=== PATIENT | male | born 1955 | race Two or more races ===

== ENCOUNTER 2024-08-17 07:59 | Outpatient (AMB) | payer MEDICARE, MEDICAID, SELFPAY ==
[2024-08-17 08:12] VITALS: BP 113/76; PULSE 61; RESP 18; TEMP 36.6; O2SAT 94; BMI 43.9
--- NOTE | 2024-08-17 08:12 | ORTHONT_ITS ---
Vital signs 08/17/24 08:12 Height 1.65 m Height Method Stated Weight 119.89 kg Weight Measurement Method Standing Scale BMI 43.9 BP 113/76 Blood Pressure Source Automatic Cuff Blood Pressure Location Left Upper Arm Position Sitting Respiration 18 Pulse 61 Pulse Source Monitor Temp 97.8 F Temp Source Temporal Artery Scan Pulse Oximetry (%) 94 L Oxygen Delivery Method Room Air Med/Allergies Allergies & Medications Allergies oyster extract Allergy (Verified 08/17/24 08:13) Medication Reconciliation atorvastatin 10 mg tablet 10 mg PO QDAY 08/17/24 [History Confirmed 08/17/24] cholecalciferol (vitamin D3) 1,250 mcg (50,000 unit) capsule 1,250 mcg PO QMONTH 08/17/24 [History Confirmed 08/17/24] levothyroxine 50 mcg capsule 50 mcg PO QDAY 08/17/24 [History Confirmed 08/17/24] meloxicam 15 mg tablet 15 mg PO QDAY 08/17/24 [History Confirmed 08/17/24] metformin 500 mg tablet 500 mg PO QDAY 08/17/24 [History Confirmed 08/17/24] semaglutide 1 mg/dose (4 mg/3 mL) subcutaneous pen injector (Ozempic) 1 mg subcut QWEEK 08/17/24 [History Confirmed 08/17/24] Exam Exam Patient is in no acute distress and is cooperative with the examination today. Breathing is nonlabored. Patient has a normal mood and affect. Bilateral extremities were evaluated and demonstrates sensation intact to light touch. Palpable pedal pulses are present. No significant edema is present. Bilateral hips were examined. The patient has no pain with log roll of the hips. Internal rotation to 30 degrees and external rotation to 30 degrees is painless. Negative FADIR. Right knee was examined today. The right knee is in reasonable alignment. Range of motion from 0-120 degrees. Knee is stable to varus and valgus as well as AP translation with <5mm. Patient has a negative McMurrays. There is no pain with patellofemoral compression and no crepitus noted. The knee is nontender to palpation. Left knee was examined today. The left knee is in varus alignment. Range of motion from 0-115 degrees. Knee is stable to varus and valgus as well as AP translation with <5mm. Patient has a negative McMurrays. There is no pain with patellofemoral compression and no crepitus noted. The knee is tender to palpation medially. X-rays from [facility] were reviewed. This demonstrates varus alignment and complete joint space obliteration of the medial joint space Assessment and Plan Problem List (1) Arthritis of left knee: Status: Acute Plan: Patient is a 68-year-old male with left knee pain and left knee arthritis. He has failed conservative treatment, 2 injections, anti-inflammatories. He has severe arthritis on x-rays but his BMI is currently 44. He will make an attempt to lose the weight. His diabetes is fortunately under control. We did just héctor about total knee replacement. We also discussed weight loss in great detail. We discussed that if he can lose some weight he will be a better candidate for a total knee replacement. We discussed the risk and benefits of total knee replacement in great detail today Advanced Care Planning Discussion Advance care planning discussed with:: patient Office Procedures GNS Level of Care Nursing/Assessment Patient Status: Initial/New Patient Nursing Assessment/Reassesment: Medication Reconciliation, Update PMH in EMR and Vital Signs Coordination of Care: Complex Care and Chronic Disease 1-5, Education Complex Pt/Fam, Consent,records obtained, informed consent, 1 Ins Authorization, Lab and Imaging orders, Results/Orders obtained and Staff clarify orders New Patient Charge New Patient Point Assignment: 1124 New Patient Point Charge: MANAGER TECH[employer]ICAL SALES Level 4 ([id number]) MA Intake Visit Data Collection New Patient or Established: New Patient (never been to [facility]) Reason for Visit:: BILATERAL OA KNEE Seen by Clinical Staff ONLY (RN/MA): No PCP or OBGYN visit in last 3 months: Yes Hx Now: No Do You Feel Safe at Home: Yes Authorities Contacted: N/A Questionairres Past Medical History Past Medical History Have you ever been diagnosed with any of the following: Respiratory Problems Smoking: No Smoking Exposure: No Endocrine Problems Diabetes Mellitus Type 2: Yes Hyperthyroidism: Yes Subjective Visit Visit for: new patient and knee (BILATERAL ) Immunization / Flu Flu Vaccine in the Last 12 Months: Yes Flu Vaccine Exclusion Criteria: No Exclusion Criteria History of Present Illness Chief complaint: Left knee pain Date of injury / onset of symptoms: 3 YEARS Jimbo is a pleasant 68-year-old male with left knee pain. This knee pain has been ongoing for several years. He does have diabetes and is reportedly well- controlled with a hemoglobin A1c of 6.7. The left knee pain is significantly worse than the right. He has tried 2 injections, formal physical therapy for 6 weeks, and anti-inflammatories. He is currently on meloxicam. He has tried to lose weight and was previously on Ozempic. Personal History Occupation: RETIRED Pain Pain level (0-10): 7 Pain duration: WITH MOVEMENT Pain location: inside (medial) and anterior Pain quality: dull Pain timing: increases with activity Ambulatory data Ambulatory device: other (specify) (KNEE BRACE) Treatments Number of previous injections: 2 Improvement with previous injections: No Number of Physical Therapy sessions: 12 Improvement with PT: No Improvement with NSAIDS: no Review of Systems Review of Systems: All systems negative unless otherwise noted in HPI.
== END 2024-08-17 08:26 | disposition home or self-care (01) ==
PROVIDERS: PCP Family Medicine; Referring Provider Family Medicine; Supervising Provider Orthopaedic Surgery Adult Reconstructive Orthopaedic Surgery; Visit Provider Orthopaedic Surgery Adult Reconstructive Orthopaedic Surgery
DX: M17.12 Unilateral primary osteoarthritis, left knee (principal); M25.562 Pain in left knee; E11.9 Type 2 diabetes mellitus without complications
CPT/HCPCS: 99204; G0463

== ENCOUNTER 2024-11-22 10:14 | Outpatient (AMB) | payer MEDICARE, MEDICAID, SELFPAY ==
--- NOTE | 2024-11-22 10:25 | PD.ORTHCLVIS ---
Vital signs 11/22/24 10:31 Height 1.65 m Height Method Stated Weight 119.04 kg Weight Measurement Method Standing Scale BMI 43.7 BP 123/65 Blood Pressure Source Automatic Cuff Blood Pressure Location Left Upper Arm Position Sitting Respiration 18 Pulse 79 Pulse Source Monitor Temp 97.4 F Temp Source Temporal Artery Scan Pulse Oximetry (%) 94 L Oxygen Delivery Method Room Air Med/Allergies Allergies & Medications Allergies oyster extract Allergy (Verified 11/22/24 10:27) Medication Reconciliation atorvastatin 10 mg tablet 10 mg PO QDAY 08/17/24 [History Confirmed 11/22/24] cholecalciferol (vitamin D3) 1,250 mcg (50,000 unit) capsule 1,250 mcg PO QMONTH 08/17/24 [History Confirmed 11/22/24] levothyroxine 50 mcg capsule 50 mcg PO QDAY 08/17/24 [History Confirmed 11/22/24] meloxicam 15 mg tablet 15 mg PO QDAY 08/17/24 [History Confirmed 11/22/24] metformin 500 mg tablet 500 mg PO QDAY 08/17/24 [History Confirmed 11/22/24] semaglutide 1 mg/dose (4 mg/3 mL) subcutaneous pen injector (Ozempic) 1 mg subcut QWEEK 08/17/24 [History Confirmed 11/22/24] Exam Exam Patient is in no acute distress and is cooperative with the examination today. Breathing is nonlabored. Patient has a normal mood and affect. Bilateral extremities were evaluated and demonstrates sensation intact to light touch. Palpable pedal pulses are present. No significant edema is present. Bilateral hips were examined. The patient has no pain with log roll of the hips. Internal rotation to 30 degrees and external rotation to 30 degrees is painless. Negative FADIR. Right knee was examined today. The right knee is in reasonable alignment. Range of motion from 0-120 degrees. Knee is stable to varus and valgus as well as AP translation with <5mm. Patient has a negative McMurrays. There is no pain with patellofemoral compression and no crepitus noted. The knee is nontender to palpation. Left knee was examined today. The left knee is in varus alignment. Range of motion from 0-115 degrees. Knee is stable to varus and valgus as well as AP translation with <5mm. Patient has a negative McMurrays. There is no pain with patellofemoral compression and no crepitus noted. The knee is tender to palpation medially. X-rays from [facility] were reviewed. This demonstrates varus alignment and complete joint space obliteration of the medial joint space Assessment and Plan Problem List (1) Arthritis of left knee: Status: Acute Plan: Patient is a 68-year-old male with left knee pain and left knee arthritis. He has failed conservative treatment, 2 injections, anti-inflammatories. He has severe arthritis on x-rays but his BMI is currently 44. He will make an attempt to lose the weight. His diabetes is fortunately under control. We did just héctor about total knee replacement. We also discussed weight loss in great detail. We discussed that if he can lose some weight he will be a better candidate for a total knee replacement. We discussed the risk and benefits of total knee replacement in great detail today. He still is approximately the same weight as last time Advanced Care Planning Discussion Advance care planning discussed with:: patient and child Office Procedures GNS Level of Care Nursing/Assessment Patient Status: Established Patient Nursing Assessment/Reassesment: Medication Reconciliation, Update PMH in EMR and Vital Signs Coordination of Care: Complex Care and Chronic Disease 1-5, Education Complex Pt/Fam, Consent,records obtained, informed consent, Results/Orders obtained and Staff clarify orders Established Patient Charge Established Patient Point Assignment: 95 Established Patient Point Charge: EP Level 3 (80-115) MA Intake Visit Data Collection Reason for Visit:: BILATERAL OA KNEE Seen by Clinical Staff ONLY (RN/MA): No PCP or OBGYN visit in last 3 months: Yes Hx Now: No Do You Feel Safe at Home: Yes Authorities Contacted: N/A Questionairres Past Medical History Past Medical History Have you ever been diagnosed with any of the following: Respiratory Problems Smoking: No Smoking Exposure: No Endocrine Problems Diabetes Mellitus Type 2: Yes Hyperthyroidism: Yes Subjective Immunization / Flu Flu Vaccine in the Last 12 Months: Yes Flu Vaccine Exclusion Criteria: No Exclusion Criteria History of Present Illness Chief complaint: Left knee pain Date of injury / onset of symptoms: 3 YEARS Jimbo is a pleasant 68-year-old male with left knee pain. This knee pain has been ongoing for several years. He does have diabetes and is reportedly well-controlled with a hemoglobin A1c of 6.7. The left knee pain is significantly worse than the right. He has tried 2 injections, formal physical therapy for 6 weeks, and anti-inflammatories. He is currently on meloxicam. He has tried to lose weight and was previously on Ozempic. Personal History Occupation: RETIRED Pain Pain level (0-10): 7 Pain duration: WITH MOVEMENT Pain location: inside (medial) and anterior Pain quality: dull Pain timing: increases with activity Ambulatory data Ambulatory device: other (specify) (KNEE BRACE) Treatments Number of previous injections: 2 Improvement with previous injections: No Number of Physical Therapy sessions: 12 Improvement with PT: No Improvement with NSAIDS: no Review of Systems Review of Systems: All systems negative unless otherwise noted in HPI.
[2024-11-22 10:31] VITALS: BP 123/65; PULSE 79; RESP 18; TEMP 36.3; O2SAT 94; BMI 43.7
--- NOTE | 2024-11-22 10:56 | XR_ITS ---
Examination: Bilateral knees 2 views Right lateral knee left lateral knee 2 views Right axial knee left axial knee 2 views TECHNIQUE: Bilateral AP knees standing single view, bilateral PA knees standing single view flexion Standing right lateral knee left lateral knee 2 views Right axial knee left axial knee 2 views total 6 views Date and time: November 22, 2024 1106 hours INDICATIONS: Bilateral knee pain 3 years getting worse FINDINGS: Moderate narrowing medial joint space right knee Moderate osteoarthritis right patellofemoral joint No fracture Advanced narrowing medial joint space left knee Significant osteoarthritis left patellofemoral joint No fracture IMPRESSION: Moderate narrowing medial joint space right knee Moderate osteoarthritis right patellofemoral joint Advanced narrowing medial joint space left knee Significant osteoarthritis left patellofemoral joint
== END 2024-11-22 10:52 | disposition home or self-care (01) ==
PROVIDERS: PCP Family Medicine; Referring Provider Family Medicine; Supervising Provider Orthopaedic Surgery Adult Reconstructive Orthopaedic Surgery; Visit Provider Orthopaedic Surgery Adult Reconstructive Orthopaedic Surgery
DX: M17.12 Unilateral primary osteoarthritis, left knee (principal); M25.562 Pain in left knee; M25.561 Pain in right knee; E11.9 Type 2 diabetes mellitus without complications
CPT/HCPCS: 73564; 99213; G0463

== ENCOUNTER 2025-02-19 08:28 | Outpatient (AMB) | payer MEDICARE, MEDICAID, SELFPAY ==
--- NOTE | 2025-02-19 08:30 | ORTHONT_ITS ---
Vital signs 02/19/25 08:38 Height 1.65 m Height Method Measured Weight 115.212 kg Weight Measurement Method Standing Scale BMI 42.3 BP 126/72 Blood Pressure Source Automatic Cuff Blood Pressure Location Left Upper Arm Position Sitting Respiration 18 Pulse 65 Pulse Source Monitor Temp 97.4 F Temp Source Temporal Artery Scan Pulse Oximetry (%) 92 L Oxygen Delivery Method Room Air Med/Allergies Allergies & Medications Allergies oyster extract Allergy (Verified 02/19/25 08:38) Medication Reconciliation atorvastatin 10 mg tablet 10 mg PO QDAY 08/17/24 [History Confirmed 02/19/25] cholecalciferol (vitamin D3) 1,250 mcg (50,000 unit) capsule 1,250 mcg PO QMONTH 08/17/24 [History Confirmed 02/19/25] levothyroxine 50 mcg capsule 50 mcg PO QDAY 08/17/24 [History Confirmed 02/19/25] metformin 500 mg tablet 500 mg PO QDAY 08/17/24 [History Confirmed 02/19/25] semaglutide 1 mg/dose (4 mg/3 mL) subcutaneous pen injector (Ozempic) 1 mg subcut QWEEK 08/17/24 [History Confirmed 02/19/25] Exam Exam Patient is in no acute distress and is cooperative with the examination today. Breathing is nonlabored. Patient has a normal mood and affect. Bilateral extremities were evaluated and demonstrates sensation intact to light touch. Palpable pedal pulses are present. No significant edema is present. Bilateral hips were examined. The patient has no pain with log roll of the hips. Internal rotation to 30 degrees and external rotation to 30 degrees is painless. Negative FADIR. Right knee was examined today. The right knee is in reasonable alignment. Range of motion from 0-120 degrees. Knee is stable to varus and valgus as well as AP translation with <5mm. Patient has a negative McMurrays. There is no pain with patellofemoral compression and no crepitus noted. The knee is nontender to palpation. Left knee was examined today. The left knee is in varus alignment. Range of motion from 0-115 degrees. Knee is stable to varus and valgus as well as AP translation with <5mm. Patient has a negative McMurrays. There is no pain with patellofemoral compression and no crepitus noted. The knee is tender to palpation medially. X-rays from [facility] were reviewed. This demonstrates varus alignment and complete joint space obliteration of the medial joint space Assessment and Plan Problem List (1) Arthritis of left knee: Status: Acute Plan: Patient is a 68-year-old male with left knee pain and left knee arthritis. He has failed conservative treatment, 2 injections, anti-inflammatories. He has severe arthritis on x-rays and his BMI is 22. He will make an attempt to lose the weight. His diabetes is fortunately under control. We did just héctor about total knee replacement. We also discussed weight loss in great detail. We discussed that if he can lose some weight he will be a better candidate for a total knee replacement. We discussed the risk and benefits of total knee replacement in great detail today. He has lost 12 pounds and we will see him in 6 months Advanced Care Planning Discussion Advance care planning discussed with:: patient and child Office Procedures GNS Level of Care Nursing/Assessment Patient Status: Established Patient Nursing Assessment/Reassesment: Medication Reconciliation, Update PMH in EMR and Vital Signs Coordination of Care: Complex Care and Chronic Disease 1-5, Education Complex Pt/Fam, Consent,records obtained, informed consent, Results/Orders obtained and Staff clarify orders Established Patient Charge Established Patient Point Assignment: 95 Established Patient Point Charge: EP Level 3 (80-115) MA Intake Visit Data Collection New Patient or Established: Established Patient (seen at [facility] within 3 years) Reason for Visit:: WEIGHT LOSS/ KNEE PAIN Seen by Clinical Staff ONLY (RN/MA): No Disability Insurance Claim Examiner Required: No PCP or OBGYN visit in last 3 months: Yes Hx Now: No Do You Feel Safe at Home: Yes Authorities Contacted: N/A Questionairres Past Medical History Past Medical History Have you ever been diagnosed with any of the following: Respiratory Problems Smoking: No Smoking Exposure: No Endocrine Problems Diabetes Mellitus Type 2: Yes Hyperthyroidism: Yes Subjective Visit Visit for: follow up visit and knee Immunization / Flu Flu Vaccine in the Last 12 Months: Yes Flu Vaccine Exclusion Criteria: No Exclusion Criteria History of Present Illness Chief complaint: WEIGHT LOSS/KNEE PAIN Date of injury / onset of symptoms: 3 YEARS Jimbo is a pleasant 68-year-old male with left knee pain. This knee pain has been ongoing for several years. He does have diabetes and is reportedly well- controlled with a hemoglobin A1c of 6.7. The left knee pain is significantly worse than the right. He has tried 2 injections, formal physical therapy for 6 weeks, and anti-inflammatories. He is currently on meloxicam. He has tried to lose weight and was previously on Ozempic. He has lost 12 pounds. Personal History Occupation: RETIRED Pain Pain level (0-10): 5 Pain duration: WITH MOVEMENT Pain location: inside (medial) and anterior Pain quality: dull Pain timing: increases with activity Ambulatory data Ambulatory device: other (specify) (KNEE BRACE) Treatments Number of previous injections: 2 Improvement with previous injections: No Number of Physical Therapy sessions: 12 Improvement with PT: No Improvement with NSAIDS: no Review of Systems Review of Systems: All systems negative unless otherwise noted in HPI.
[2025-02-19 08:38] VITALS: BP 126/72; PULSE 65; RESP 18; TEMP 36.3; O2SAT 92; BMI 42.3
== END 2025-02-19 09:01 | disposition home or self-care (01) ==
LOC: HODSRG 08:28
PROVIDERS: PCP Family Medicine; Referring Provider Family Medicine; Supervising Provider Orthopaedic Surgery Adult Reconstructive Orthopaedic Surgery; Visit Provider Orthopaedic Surgery Adult Reconstructive Orthopaedic Surgery
DX: M25.562 Pain in left knee (principal); M17.12 Unilateral primary osteoarthritis, left knee; E11.9 Type 2 diabetes mellitus without complications
CPT/HCPCS: 99213; G0463